=== PATIENT | female | born 1960 | race African-American/Black ===

== ENCOUNTER 2018-01-07 15:22 | Inpatient (IN) | payer OTHER ==
[~2018-01-07] VITALS: Ht 157.5 cm; Wt 86.9 kg
[2018-01-07] MEDS ORDERED: SODIUM CHLORIDE 0.9% 500 ML IVB ONE (15:37)
[2018-01-07 16:38] LABS: Basophils # (auto) 0 uL; Basophils % (auto) 0.4 % (0.0-2.0); Eosinophils # (auto) 0.5 uL; Hematocrit 36.3 % (36.0-46.0); Hemoglobin 11.9 g/dL (12.2-16.2); Lymphocytes # (auto) 1.6 uL; Lymphocytes % (auto) 27.3 % (10.0-50.0); Mean Corpuscular Hemoglobin 28.9 pg (28.0-32.0); Mean Corpuscular Hgb Conc. 32.7 g/dL (32.0-36.0); Mean Corpuscular Volume 88.5 fL (80.0-100.0); Monocytes # (auto) 0.5 uL; Monocytes % (auto) 8.2 % (0.0-12.0); Neutrophils # (auto) 3.1 uL; Neutrophils % (auto) 55.1 % (37.0-80.0); Nucleated Red Blood Cells % 0.1 %; Platelet Count (auto) 237 10^3/uL (140-450); Red Cell Distribution Width 13.9 % (11.8-14.3); White Blood Cell 5.7 10^3/uL (4.4-10.8)
[2018-01-07 16:50] LABS: Alanine Aminotransferase 13 U/L (13-56); Albumin 3.9 g/dL (3.4-5.0); Alkaline Phosphatase 186 U/L (45-117); Anion Gap 7 (5-15); Aspartate Aminotransferase 20 U/L (15-37); BUN/Creatinine Ratio 16.1; Bilirubin, Total 0.2 mg/dL (0.2-1.0); Blood Alcohol < 3.0 mg/dL (0-5); Blood Urea Nitrogen 31 mg/dL (7-18); Calcium 8.1 mg/dL (8.5-10.1); Carbon Dioxide 22 mmol/L (21-32); Chloride 108 mmol/L (98-107); GFR African American 34 mL/min; GFR Non-African American 28 mL/min; Glucose 87 mg/dL (74-106); Magnesium 1.9 mg/dL (1.6-2.6); Potassium 4.5 mmol/L (3.5-5.1); Sodium 137 mmol/L (136-145); Total Protein 7.1 g/dL (6.4-8.2)
[2018-01-07] MEDS ORDERED: LABETALOL HCL 5 MG/ML ML 20ML VIAL IV PRN ×3 (17:30→18:00)
[2018-01-07] MEDS ORDERED: TEMAZEPAM 15 MG CAP PO PRN (17:30)
[2018-01-07] MEDS ORDERED: LACTULOSE 20Gm/30ML SOLN PO PRN (17:30)
[2018-01-07] MEDS ORDERED: PROMETHAZINE HCL 25 MG/ML 1ML IV PRN (17:30)
[2018-01-07] MEDS ORDERED: NITROGLYCERIN 0.4 MG SL TAB SL PRN (17:30)
[2018-01-07] MEDS ORDERED: MORPHINE SULFATE 8mg/ml INJ SDV IV PRN ×2 (17:30)
[2018-01-07] MEDS ORDERED: LORazepam 0.5 MG TAB PO PRN (17:30)
[2018-01-07] MEDS ORDERED: HYDROcodone-ACET 5/325MG TAB PO PRN (17:30)
[2018-01-07] MEDS: SODIUM CHLORIDE 0.9% 1,000 ML IV SCH (17:50)
[2018-01-07] MEDS: ACETAMINOPHEN 500 MG TAB PO PRN (17:50)
[2018-01-07] MEDS ORDERED: LOSARTAN POTASSIUM 50 MG TAB PO ONE (18:00)
[2018-01-07] MEDS ORDERED: amLODIPine BESYLATE 5 MG TAB PO ONE (18:00)
[2018-01-07 18:39] LABS: Folate (Folic Acid) 2.2 ng/mL (5.38-24)
[2018-01-07 18:41] LABS: INR 1.02 (0.9-1.15); Partial Thromboplastin Time 27.1 sec (22.64-33.71); Prothrombin Time 11.1 sec (9.37-12.3)
[2018-01-07 18:49] LABS: Urine WBC None Seen /hpf (0 - 5)
[2018-01-07 19:03] LABS: Urine Bacteria NONE SEEN /hpf (None Seen); Urine Blood Negative /uL (Negative); Urine Specific Gravity 1.008 (1.001-1.035)
[2018-01-07 19:11] LABS: Alcohol, Urine < 3.0 mg/dL (0-5); Amphetamine Screen, Urine NEGATIVE (NEGATIVE); Barbiturate Scree,Urine NEGATIVE (NEGATIVE); Benzodiazephine Screen, Urine NEGATIVE (NEGATIVE); Cannabinoid Screen, Urine NEGATIVE (NEGATIVE); Cocaine Screen, Urine NEGATIVE (NEGATIVE); Opiate Scree,Urine NEGATIVE (NEGATIVE); Phencyclidine Screen, Urine NEGATIVE (NEGATIVE)
[2018-01-07] MEDS ORDERED: FOLIC ACID 1 MG in D5W 5% 50 ML IV ONE (20:00)
[2018-01-07 21:20] VITALS: BP 159/99
[2018-01-07] MEDS: LABETALOL HCL 200 MG TAB PO SCH (22:00)
[2018-01-07] MEDS ORDERED: PHENYTOIN SODIUM 100 MG CAP PO SCH (22:00)
[2018-01-07] MEDS ORDERED: ATORVASTATIN 20 MG TAB PO SCH (22:00)
[2018-01-07] MEDS: ATORVASTATIN 20 MG TAB PO SCH (22:09)
[2018-01-07] MEDS: PHENYTOIN SODIUM 100 MG CAP PO SCH (22:10)
[2018-01-07] MEDS: LEVETIRACETAM 500 MG TAB PO SCH (22:11)
[2018-01-07 23:51] VITALS: BP 159/99
[2018-01-08 05:11] VITALS: BP 190/86
[2018-01-08] MEDS: SODIUM CHLORIDE 0.9% 1,000 ML IV SCH ×2 (05:24→16:52)
[2018-01-08] MEDS ORDERED: cloNIDine HCL 0.1 MG TAB PO ONE (05:45)
[2018-01-08] MEDS: LABETALOL HCL 200 MG TAB PO SCH (05:48)
[2018-01-08] MEDS: PHENYTOIN SODIUM 100 MG CAP PO SCH ×2 (05:51→21:43)
[2018-01-08 07:25] LABS: Albumin 3.7 g/dL (3.4-5.0); BUN/Creatinine Ratio 17.5; Calcium 8.7 mg/dL (8.5-10.1); Potassium 4.1 mmol/L (3.5-5.1)
[2018-01-08 07:28] LABS: Bilirubin, Total 0.4 mg/dL (0.2-1.0)
[2018-01-08 08:35] VITALS: BP 153/88
[2018-01-08] MEDS: PANTOPRAZOLE 40 MG TAB PO SCH (09:55)
[2018-01-08] MEDS: CYANOCOBALAMIN 500 MCG TAB PO SCH (09:55)
[2018-01-08] MEDS: LEVETIRACETAM 500 MG TAB PO SCH ×2 (09:55→21:43)
[2018-01-08] MEDS: ENOXAPARIN SOD 40 MG/0.4 ML SYRINGE SC SCH (09:55)
[2018-01-08] MEDS: amLODIPine BESYLATE 5 MG TAB PO SCH (09:56)
[2018-01-08] MEDS: LOSARTAN POTASSIUM 50 MG TAB PO SCH (09:56)
[2018-01-08] MEDS: ENALAPRIL MALEATE 2.5 MG TAB PO SCH (09:57)
[2018-01-08] MEDS ORDERED: ASPirin 81 mg TAB PO SCH (10:00)
[2018-01-08 11:33] VITALS: BP 165/86
[2018-01-08 16:39] VITALS: BP 176/90
[2018-01-08] MEDS ORDERED: hydrALAZINE HCL 20 MG/ML VL IV PRN (17:45)
[2018-01-08] MEDS ORDERED: LOSA100T27 PO (19:27)
[2018-01-08] MEDS ORDERED: AMLO5TAB2 PO (19:27)
[2018-01-08] MEDS ORDERED: PHEN-250 PO (19:27)
[2018-01-08] MEDS ORDERED: ATOR20TA50 PO (19:27)
[2018-01-08] MEDS ORDERED: LABE200T18 PO (19:27)
[2018-01-08] MEDS: ATORVASTATIN 20 MG TAB PO SCH (21:43)
[2018-01-08] MEDS: ACETAMINOPHEN 500 MG TAB PO PRN (21:44)
[2018-01-08 21:52] VITALS: BP 148/89
[2018-01-09 01:07] LABS: Protein, Urine 22.4 mg/dL (0.0-11.9)
[2018-01-09 04:45] VITALS: BP 133/77
[2018-01-09] MEDS: SODIUM CHLORIDE 0.9% 1,000 ML IV SCH (06:09)
[2018-01-09] MEDS: PHENYTOIN SODIUM 100 MG CAP PO SCH (06:13)
[2018-01-09 08:06] VITALS: BP 157/102
[2018-01-09] MEDS: ENOXAPARIN SOD 40 MG/0.4 ML SYRINGE SC SCH (09:23)
[2018-01-09] MEDS: LOSARTAN POTASSIUM 50 MG TAB PO SCH (10:08)
[2018-01-09] MEDS: LEVETIRACETAM 500 MG TAB PO SCH (10:08)
[2018-01-09] MEDS: CYANOCOBALAMIN 500 MCG TAB PO SCH (10:08)
[2018-01-09] MEDS: PANTOPRAZOLE 40 MG TAB PO SCH (10:08)
[2018-01-09] MEDS: ENALAPRIL MALEATE 2.5 MG TAB PO SCH (10:08)
[2018-01-09] MEDS: amLODIPine BESYLATE 5 MG TAB PO SCH (10:09)
== END 2018-01-09 11:00 | disposition left against medical advice (07) | DRG 312 ==
LOC: ER 15:33 → OVERFLOW 15:34 → TELE-CENTR 21:28
PROVIDERS: ADMIT Internal Medicine; ATTEND Family Medicine
DX: R55 Syncope and collapse (principal); N17.9 Acute kidney failure, unspecified; I67.2 Cerebral atherosclerosis; N18.3 Chronic kidney disease, stage 3 (moderate); G40.409 Other generalized epilepsy and epileptic syndromes, not intractable, without status epilepticus; D64.9 Anemia, unspecified; E53.8 Deficiency of other specified B group vitamins; E78.00 Pure hypercholesterolemia, unspecified; E78.5 Hyperlipidemia, unspecified; I16.0 Hypertensive urgency; I08.0 Rheumatic disorders of both mitral and aortic valves; R00.1 Bradycardia, unspecified; R47.81 Slurred speech; I12.9 Hypertensive chronic kidney disease with stage 1 through stage 4 chronic kidney disease, or unspecified chronic kidney disease; Z82.49 Family history of ischemic heart disease and other diseases of the circulatory system; Z79.899 Other long term (current) drug therapy; I69.398 Other sequelae of cerebral infarction
CPT/HCPCS: 36415; 70450; 71045; 76775; 80053; 80185; 80307; 80320; 81001; 82306; 82550; 82570; 82607; 82746; 83735; 83880; 83970; 84100; 84156; 84300; 84443; 84484; 85025; 85610; 85652; 85730; 93005; 93306; 93886; 94761; 95819; 96361; 96365; J7060

== ENCOUNTER 2018-06-16 13:58 | Observation (INO) | payer OTHER ==
[~2018-06-16] VITALS: Ht 167.6 cm; Wt 81.6 kg
[~2018-06-16 13:58] MED LIST: AMLO5TAB13 PO; ATOR20TA50 PO; LABE200T18 PO; LOSA-49 PO; PHEN-250 PO
[2018-06-16] MEDS ORDERED: LOSARTAN POTASSIUM 50 MG TAB PO ONE (16:00)
[2018-06-16 16:32] LABS: Basophils # (auto) 0 uL; Basophils % (auto) 0.3 % (0.0-2.0); Eosinophils # (auto) 0.4 uL; Eosinophils % (auto) 5.5 % (0.0-7.0); Hematocrit 38.5 % (36.0-46.0); Hemoglobin 12.7 g/dL (12.2-16.2); Lymphocytes # (auto) 1.3 uL; Lymphocytes % (auto) 19.4 % (10.0-50.0); Mean Corpuscular Hemoglobin 29.4 pg (28.0-32.0); Mean Corpuscular Hgb Conc. 32.9 g/dL (32.0-36.0); Mean Corpuscular Volume 89.3 fL (80.0-100.0); Monocytes # (auto) 0.5 uL; Monocytes % (auto) 7.3 % (0.0-12.0); Neutrophils # (auto) 4.5 uL; Neutrophils % (auto) 67.5 % (37.0-80.0); Platelet Count (auto) 244 10^3/uL (140-450); Red Blood Cells 4.31 10^6/uL (4.0-5.20); Red Cell Distribution Width 13.6 % (11.8-14.3); White Blood Cell 6.6 10^3/uL (4.4-10.8)
[2018-06-16 16:46] LABS: Albumin 3.8 g/dL (3.4-5.0); BUN/Creatinine Ratio 18.2; Bilirubin, Total 0.3 mg/dL (0.2-1.0); Calcium 8.2 mg/dL (8.5-10.1); Potassium 4.9 mmol/L (3.5-5.1)
[2018-06-16 16:50] LABS: Magnesium 2.1 mg/dL (1.6-2.6)
[2018-06-16 16:58] LABS: Urine Bacteria NONE SEEN /hpf (None Seen); Urine Blood Negative /uL (Negative); Urine Specific Gravity 1.009 (1.001-1.035); Urine WBC <1 /hpf (0 - 5)
[2018-06-16] MEDS ORDERED: cloNIDine HCL 0.1 MG TAB PO ONE (18:00)
[2018-06-16 18:57] VITALS: BP 168/101
== END 2018-06-16 20:40 | disposition home or self-care (01) | DRG 69 ==
LOC: ER 13:58 → EDBD 13:58 → OVERFLOW 13:59 → ER 20:40
PROVIDERS: ADMIT Family Medicine; ATTEND Family Medicine
DX: G45.9 Transient cerebral ischemic attack, unspecified (principal); I10 Essential (primary) hypertension; E78.5 Hyperlipidemia, unspecified; Z86.73 Personal history of transient ischemic attack (TIA), and cerebral infarction without residual deficits
CPT/HCPCS: 36415; 70450; 71045; 80053; 80185; 81001; 82962; 83735; 84484; 85025; 93005; G0378

== ENCOUNTER 2021-02-05 18:20 | Emergency (ER) | payer OTHER ==
[~2021-02-05] VITALS: Ht 157.5 cm; Wt 81.6 kg
[~2021-02-05 18:20] MED LIST changes: +AMLO-489 PO; -AMLO5TAB13 PO; -LABE200T18 PO; +LABE200T7 PO; +LOSA-39 PO; -LOSA-49 PO
[2021-02-05 19:17] LABS: Basophils # (auto) 0.1 10 ^3/uL (0-0.2); Basophils % (auto) 0.9 % (0.0-2.0); Eosinophils # (auto) 0.3 10 ^3/uL (0-0.8); Eosinophils % (auto) 4.5 % (0.0-7.0); Hematocrit 35.8 % (36.0-46.0); Hemoglobin 11.8 g/dL (12.2-16.2); Lymphocytes # (auto) 1.7 10 ^3/uL (0.4-5.4); Lymphocytes % (auto) 26.6 % (10.0-50.0); Mean Corpuscular Hemoglobin 30.8 pg (28.0-32.0); Mean Corpuscular Hgb Conc. 32.9 g/dL (32.0-36.0); Mean Corpuscular Volume 93.5 fL (80.0-100.0); Monocytes # (auto) 0.7 10 ^3/uL (0-1.3); Monocytes % (auto) 10.8 % (0.0-12.0); Neutrophils # (auto) 3.7 10 ^3/uL (1.6-8.6); Neutrophils % (auto) 57.2 % (37.0-80.0); Platelet Count (auto) 236 10^3/uL (140-450); Red Blood Cells 3.83 10^6/uL (4.0-5.20); White Blood Cell 6.5 10^3/uL (4.4-10.8)
[2021-02-05 19:35] LABS: Albumin 3.3 g/dL (3.4-5.0); Anion Gap 8 (5-15); Blood Alcohol < 3.0 mg/dL (0-5); Blood Urea Nitrogen 44 mg/dL (7-18); Calcium 8.4 mg/dL (8.5-10.1); Carbon Dioxide 25 mmol/L (21-32); Chloride 110 mmol/L (98-107); Glucose 66 mg/dL (74-106); Magnesium 2.1 mg/dL (1.6-2.6); Potassium 4.8 mmol/L (3.5-5.1); Sodium 143 mmol/L (136-145)
[2021-02-05 19:40] LABS: Alanine Aminotransferase 20 U/L (13-56); Alkaline Phosphatase 85 U/L (45-117); Aspartate Aminotransferase 31 U/L (15-37); BUN/Creatinine Ratio 15.6; Bilirubin, Total 0.2 mg/dL (0.2-1.0); GFR African American 22 mL/min; GFR Non-African American 18 mL/min; Total Protein 6.8 g/dL (6.4-8.2)
[2021-02-05] MEDS ORDERED: hydrALAZINE HCL 20 MG/ML VL IV ONE (20:00)
[2021-02-05] MEDS ORDERED: ASPirin 81 mg TAB PO ONE (20:00)
[2021-02-05] MEDS ORDERED: hydrALAZINE HCL 20 MG/ML VL ONE (20:05)
[2021-02-05] MEDS ORDERED: ASPirin 81 mg TAB ONE (20:06)
[2021-02-05 20:57] LABS: Urine Bacteria NONE SEEN /hpf (None Seen); Urine Blood Negative /uL (Negative); Urine Hyaline Cast FEW /lpf (0 - 2); Urine WBC 14 /hpf (0 - 5)
[2021-02-05 21:24] LABS: Alcohol, Urine < 3.0 mg/dL (0-10); Amphetamine Screen, Urine NEGATIVE (NEGATIVE); Barbiturate Scree,Urine NEGATIVE (NEGATIVE); Benzodiazephine Screen, Urine NEGATIVE (NEGATIVE); Cannabinoid Screen, Urine NEGATIVE (NEGATIVE); Cocaine Screen, Urine NEGATIVE (NEGATIVE); Opiate Scree,Urine NEGATIVE (NEGATIVE); Phencyclidine Screen, Urine NEGATIVE (NEGATIVE)
[2021-02-06] MEDS ORDERED: ACETAMINOPHEN 500 MG TAB PO ONE (01:30)
[2021-02-06] MEDS ORDERED: METOCLOPRAMIDE HCL 5MG/ml INJ 2ml VIAL IV ONE (01:30)
[2021-02-06 01:55] VITALS: BP 153/79
== END 2021-02-06 02:22 | disposition home or self-care (01) ==
LOC: ER 18:20
DX: R53.1 Weakness (principal); E78.5 Hyperlipidemia, unspecified; I10 Essential (primary) hypertension; Z20.822 Contact with and (suspected) exposure to COVID-19
CPT/HCPCS: 36415; 70450; 80053; 80185; 80307; 80320; 81001; 82962; 83735; 84484; 85025; 87426; 93005; 96374; 96375; 99285; J0360; J2765